=== PATIENT | female | born 1960 | race Caucasian/White ===

== ENCOUNTER 2016-10-02 11:21 | Outpatient (CLI) | payer BC | END 2016-10-02 11:22 | disposition home or self-care (01) | LOC: MADLAB 11:21 | PROVIDERS: ATTEND Family Medicine | DX: D50.9 Iron deficiency anemia, unspecified (principal) | CPT/HCPCS: 36415; 82728; 83550 ==

== ENCOUNTER 2016-12-03 09:07 | Outpatient (CLI) | payer BC ==
[2016-12-03 09:33] LABS: #Basophils 0.1 thou/uL (0.0-0.2); #Eosinphils 0.1 thou/uL (0.0-0.7); #Lymphocytes 2.2 thou/uL (1.20-3.40); #Monocytes 0.5 thou/uL (0.11-0.59); #Neutrophils 4.7 thou/uL (1.40-6.50); %Basophils 1.5 % (0.0-1.0); %Eosinophils 1.8 % (0.0-10.0); %Lymphocytes 28.8 % (21.0-51.0); %Monocytes 6.3 % (0.0-10.0); %Neutrophils 61.6 % (42.0-75.0); Hemoglobin 16.5 g/dL (12.0-16.0); Mean Corpuscular HGB CONC 32.6 g/dL (32.0-36.0); Mean Corpuscular Hemoglobin 27.7 pg (27.0-31.0); Mean Platelet Volume 6.9 fL (7.4-10.4); Platelet Count 314 thou/uL (130-400); RBC Distribution Width 14.7 % (11.5-14.5); Red Blood Cell (RBC) Count 5.95 mill/uL (4.20-5.40); White Blood Cell (WBC) Count 7.6 thou/uL (4.8-10.8)
[2016-12-03 10:05] LABS: ALT (SGPT) 20 U/L (0-55); AST (SGOT) 18 U/L (5-34); Albumin 3.9 g/dL (3.5-5.0); Alkaline Phosphatase 62 U/L (40-150); Anion Gap 16 mmol/L (10-20); BUN (Urea Nitrogen) 11 mg/dL (9.8-20.1); Bilirubin, Total 0.4 mg/dL (0.2-1.2); Calc. Creatinine Clearance 0 mL/min (70-130); Carbon Dioxide 23 mmol/L (22-29); Chloride 105 mmol/L (98-107); Estimated GFR-MDRD 86; Globulin 2.8 g/dL (2.4-3.5); Glucose 113 mg/dL (70-105); Potassium 4.1 mmol/L (3.5-5.1); Protein, Total 6.7 g/dL (6.0-8.3); Sodium 140 mmol/L (136-145)
== END 2016-12-03 09:08 | disposition home or self-care (01) ==
LOC: MADLAB 09:07
PROVIDERS: ATTEND Orthopaedic Surgery
DX: E55.9 Vitamin D deficiency, unspecified (principal); M81.0 Age-related osteoporosis without current pathological fracture
CPT/HCPCS: 36415; 80053; 82306; 85025

== ENCOUNTER 2017-02-21 09:07 | Outpatient (CLI) | payer BC ==
[2017-02-21 09:38] LABS: Hemoglobin A1c 5.5 % (4.0-6.0)
[2017-02-21 09:45] LABS: ALT (SGPT) 23 U/L (8-55); AST (SGOT) 27 U/L (5-34); Albumin 3.9 g/dL (3.5-5.0); Alkaline Phosphatase 73 U/L (40-150); Anion Gap 15 mmol/L (10-20); BUN (Urea Nitrogen) 12 mg/dL (9.8-20.1); Bilirubin, Total 0.6 mg/dL (0.2-1.2); Calc. Creatinine Clearance 0 mL/min (70-130); Calcium 10.1 mg/dL (7.8-10.44); Carbon Dioxide 25 mmol/L (22-29); Cardiac Risk 4.4 (Less than 4.5); Chloride 104 mmol/L (98-107); Cholesterol 207 mg/dl (< 200 Desired); Estimated GFR-MDRD 73; Globulin 3.7 g/dL (2.4-3.5); Glucose 120 mg/dL (70-105); HDL Cholesterol 47 mg/dL (>60 Neg Risk); LDL Cholesterol, Calculated 132 mg/dL; Potassium 4.1 mmol/L (3.5-5.1); Protein, Total 7.6 g/dL (6.0-8.3); Sodium 140 mmol/L (136-145); Triglycerides 139 mg/dL (Less than 150)
[2017-02-21 10:14] LABS: #Basophils 0.1 thou/uL (0.0-0.2); #Eosinphils 0.1 thou/uL (0.0-0.7); #Monocytes 0.6 thou/uL (0.11-0.59); #Neutrophils 5.2 thou/uL (1.40-6.50); %Basophils 1.4 % (0.0-1.0); %Eosinophils 1.6 % (0.0-10.0); %Lymphocytes 24.7 % (21.0-51.0); %Monocytes 7.1 % (0.0-10.0); %Neutrophils 65.1 % (42.0-75.0); Hemoglobin 16.6 g/dL (12.0-16.0); Mean Corpuscular HGB CONC 31.7 g/dL (32.0-36.0); Mean Corpuscular Hemoglobin 27.4 pg (27.0-31.0); Mean Corpuscular Volume 86.4 fl (81.0-99.0); Mean Platelet Volume 6.9 fL (7.4-10.4); Platelet Count 377 thou/uL (130-400); Red Blood Cell (RBC) Count 6.04 mill/uL (4.20-5.40); White Blood Cell (WBC) Count 7.9 thou/uL (4.8-10.8)
== END 2017-02-21 09:08 | disposition home or self-care (01) ==
LOC: MADLABBHPM 09:07
PROVIDERS: ATTEND Family Medicine
DX: R07.89 Other chest pain (principal); E03.9 Hypothyroidism, unspecified; R73.09 Other abnormal glucose; E55.9 Vitamin D deficiency, unspecified
CPT/HCPCS: 80053; 80061; 83036; 84443; 85025

== ENCOUNTER 2017-08-13 14:52 | Outpatient (CLI) | payer BC ==
--- NOTE | 2017-08-13 15:46 | RAD ---
TWO VIEW CHEST: Indication: Cough. FINDINGS: There is no consolidation, effusion, or pneumothorax. Cardiac silhouette is at upper limits of normal in size. There is ectasia and tortuousity of the thoracic aorta. Mild thoracic kyphosis is present. IMPRESSION: No focal consolidation. POS: [facility]
== END 2017-08-13 14:53 | disposition home or self-care (01) ==
LOC: MADRAD 14:52
PROVIDERS: ATTEND Family Medicine
DX: R05 Cough (principal)
CPT/HCPCS: 71046

== ENCOUNTER 2019-05-19 18:56 | Emergency (ER) | payer BC ==
[2019-05-19] MEDS ORDERED: Ketorolac Tromethamine 30 MG/ML VIAL ONE (19:12)
[2019-05-19 19:30] LABS: Bilirubin Negative (Negative); Blood, Urine Trace (Negative); Clarity Clear (Clear); Glucose, Urine (Dipstick) Negative (Negative); Leukocyte Trace (Negative); Nitrite Negative (Negative); Protein, Urine (Dipstick) 30 mg/dL (Neg-Trace)
[2019-05-19 19:33] LABS: #Basophils 0.1 thou/uL (0.0-0.2); #Eosinphils 0.1 thou/uL (0.0-0.7); #Lymphocytes 1.9 thou/uL (1.20-3.40); #Monocytes 0.4 thou/uL (0.11-0.59); #Neutrophils 6.7 thou/uL (1.40-6.50); %Basophils 0.7 % (0.0-1.0); %Eosinophils 1.1 % (0.0-10.0); %Monocytes 4.8 % (0.0-10.0); %Neutrophils 72.4 % (42.0-75.0); Anisocytosis SLIGHT = 6-15 cells (100X) (0-5/hpf); Hemoglobin 13.8 g/dL (12.0-16.0); MDiff Complete? YES; Mean Corpuscular HGB CONC 30.9 g/dL (32.0-36.0); Mean Corpuscular Hemoglobin 24.5 pg (27.0-31.0); Mean Corpuscular Volume 79.2 fL (78.0-98.0); Mean Platelet Volume 5.9 fL (7.4-10.4); Platelet Count 396 thou/uL (130-400); Platelet Morphology Comment Appears Adequate; RBC Distribution Width 15.1 % (11.5-14.5); Red Blood Cell (RBC) Count 5.62 mill/uL (4.20-5.40); White Blood Cell (WBC) Count 9.2 thou/uL (4.8-10.8)
[2019-05-19 19:39] LABS: ALT (SGPT) 22 U/L (8-55); AST (SGOT) 17 U/L (5-34); Albumin 3.9 g/dL (3.5-5.0); Alkaline Phosphatase 83 U/L (40-110); Anion Gap 15 mmol/L (10-20); BUN (Urea Nitrogen) 14 mg/dL (9.8-20.1); Bilirubin, Total 0.2 mg/dL (0.2-1.2); Calc. Creatinine Clearance 0 mL/min (70-130); Calcium 9.8 mg/dL (7.8-10.44); Carbon Dioxide 28 mmol/L (22-29); Chloride 104 mmol/L (98-107); Estimated GFR-MDRD 61; Globulin 3.3 g/dL (2.4-3.5); Glucose 136 mg/dL (70-105); Potassium 4.2 mmol/L (3.5-5.1); Protein, Total 7.2 g/dL (6.0-8.3); Sodium 143 mmol/L (136-145)
[2019-05-19 19:39] LABS: Bacteria/HPF Rare-Few HPF (None Seen); Mucous/LPF 2+ LPF (<2+); WBC/HPF 0-3 HPF (0-3)
--- NOTE | 2019-05-19 19:39 | CT ---
CT abdomen/pelvis noncontrast CLINICAL HISTORY: Right flank pain FINDINGS: 6 mm proximal right ureteral calculus results in moderate right hydronephrosis and prominen t distention of the right renal pelvis. Moderate distention of the proximal right ureter is present with associated periureteral fat stranding. The subsequent right ureter is decompressed. Additional r ight renal calculi are present, multiple in number. There is punctate nonobstructive left nephrolithiasis. There is colonic diverticulosis. Limited evaluation of solid abdominal organs, bowel, lymph nodes, an d vasculature, on the basis of noncontrast technique. Imaged lung bases reveal no acute process. No acute osseous abnormalities. IMPRESSION: Moderately obstructing 6 mm proximal right ureteral calculus. Multiple bilateral renal calculi. Colonic diverticulosis. Evaluation otherwise limited by noncontrast technique. Transcribed Date/Time: 05/19/2019 7:42 PM
[2019-05-19 19:40] LABS: Calcium Oxalate Crystals Rare HPF (None Seen)
[2019-05-19] MEDS ORDERED: Ondansetron ODT 4 MG TAB ONE (20:50)
== END 2019-05-19 20:54 | disposition home or self-care (01) ==
LOC: MADERS 18:56
DX: N13.2 Hydronephrosis with renal and ureteral calculous obstruction (principal); E03.9 Hypothyroidism, unspecified; M79.7 Fibromyalgia; G43.909 Migraine, unspecified, not intractable, without status migrainosus; Z79.899 Other long term (current) drug therapy; Z79.51 Long term (current) use of inhaled steroids
CPT/HCPCS: 74176; 80053; 81003; 81015; 85025; 87086; 96361; 96374; J1885; Q0162

== ENCOUNTER 2019-05-28 02:22 | Emergency (ER) | payer BC ==
[2019-05-28 03:37] LABS: Acetaminophen Less than 6.0 mcg/mL (10.0-30.0); Alcohol Less than 10 mg/dL (Less than 10); Base Excess-Venous 1.6 mmol/L (-2.0 to 3.0); CO2 Tension (PvCO2) 55.1 mmHg (40.0-50.0); Chloride 101 mmol/L (98-107); Hemoglobin - Calc 15.5 g/dL (12.0-16.0); Lipase 11 U/L (8-78); Potassium 3.5 mmol/L (3.5-5.1); Salicylate Less than 8.0 mg/dL (15.0-30.0); Sodium 136 mmol/L (138-145); T. Carbon Dioxide 30.7 mmol/L (22.0-28.0); vO2 Saturation-calc 50.9 % (60.0-85.0)
[2019-05-28 03:44] LABS: #Basophils 0.2 thou/uL (0.0-0.2); #Eosinphils 0.2 thou/uL (0.0-0.7); #Lymphocytes 1.7 thou/uL (1.20-3.40); #Monocytes 0.8 thou/uL (0.11-0.59); #Neutrophils 9.2 thou/uL (1.40-6.50); %Basophils 1.6 % (0.0-1.0); %Eosinophils 1.9 % (0.0-10.0); %Lymphocytes 13.7 % (21.0-51.0); %Monocytes 6.7 % (0.0-10.0); %Neutrophils 76.1 % (42.0-75.0); Hemoglobin 12.6 g/dL (12.0-16.0); Hypochromia SLIGHT = 6-15 cells (100X) (0-5/hpf); MDiff Complete? YES; Mean Corpuscular HGB CONC 30.8 g/dL (32.0-36.0); Mean Corpuscular Hemoglobin 24.3 pg (27.0-31.0); Mean Corpuscular Volume 78.8 fL (78.0-98.0); Mean Platelet Volume 6.1 fL (7.4-10.4); Microcytosis SLIGHT = 6-15 cells (100X) (0-5/hpf); Platelet Count 322 thou/uL (130-400); Platelet Morphology Comment Appears Adequate; Poikilocytosis MODERATE=16-30 cells (100X) (0-5/hpf); RBC Distribution Width 14.7 % (11.5-14.5); Red Blood Cell (RBC) Count 5.17 mill/uL (4.20-5.40); White Blood Cell (WBC) Count 12.1 thou/uL (4.8-10.8)
[2019-05-28 03:47] LABS: ALT (SGPT) 17 U/L (8-55); AST (SGOT) 18 U/L (5-34); Albumin 3.9 g/dL (3.5-5.0); Alkaline Phosphatase 68 U/L (40-110); Anion Gap 15 mmol/L (10-20); BUN (Urea Nitrogen) 17 mg/dL (9.8-20.1); Bilirubin, Total 0.3 mg/dL (0.2-1.2); Calc. Creatinine Clearance 0 mL/min (70-130); Calcium 9.4 mg/dL (7.8-10.44); Carbon Dioxide 26 mmol/L (22-29); Chloride 100 mmol/L (98-107); Estimated GFR-MDRD 54; Globulin 2.8 g/dL (2.4-3.5); Glucose 116 mg/dL (70-105); Potassium 3.6 mmol/L (3.5-5.1); Protein, Total 6.7 g/dL (6.0-8.3); Sodium 137 mmol/L (136-145)
[2019-05-28 03:56] LABS: Bilirubin Negative (Negative); Blood, Urine Large (Negative); Clarity Slightly Cloudy (Clear); Glucose, Urine (Dipstick) Negative (Negative); Leukocyte Small (Negative); Nitrite Positive (Negative); Protein, Urine (Dipstick) 100 mg/dL (Neg-Trace); Urobilinogen 0.2 mg/dL (Less than 2)
[2019-05-28 04:02] LABS: Cocaine Metabolite Screen Not Detected (NotDetected); Phencyclidine (PCP) Not Detected (NotDetected); THC/Cannabinoid Screen Not Detected (NotDetected)
[2019-05-28 04:03] LABS: Amphetamine Not Detected (NotDetected); Barbiturates Screen Not Detected (NotDetected); Benzodiazepine Screen Detected (NotDetected); Medtox Control Line Valid? VALID (VALID); Methadone Not Detected (NotDetected); Methamphetamine Not Detected (NotDetected); Opiate Screen Detected (NotDetected); Oxycodone Screen Not Detected (NotDetected); RBC/HPF 21-50 HPF (0-3); Tricyclic Screen Not Detected (NotDetected)
[2019-05-28 04:04] LABS: Bacteria/HPF 4+ HPF (None Seen)
[2019-05-28] MEDS ORDERED: Sodium Chloride 0.9% 100 ML ONE (06:59)
[2019-05-28] MEDS ORDERED: Sodium Chloride 0.9% 1,000 ML ONE (06:59)
[2019-05-28] MEDS ORDERED: cefTRIAXone\\ROCEPHIN 1 GM VIAL ONE (06:59)
[2019-05-28] MEDS ORDERED: Ondansetron PF 4 MG/2 ML Vial ONE (07:51)
--- NOTE | 2019-05-28 08:40 | RAD ---
SINGLE VIEW CHEST: Date: 05/28/19 COMPARISON: 12/04/16. HISTORY: Dyspnea. FINDINGS: Single view of the chest shows an enlarged but stable cardiomediastinal silhouette. There is no evide nce of consolidation, mass, or pleural effusion. IMPRESSION: Stable cardiomegaly. POS: [facility]
[2019-05-28] MEDS ORDERED: Iopamidol 370 76% 150 ML VIAL FS ONE (09:24)
--- NOTE | 2019-05-28 10:31 | CT ---
PRELIMINARY REPORT/[facility]/EMERGENCY AFTER HOURS PROCEDURE: PROCEDURE INFORMATION: Exam: CT Abdomen And Pelvis Without Contrast Exam date and time: 05/28/2019 4:18 AM Clinical history: 58 years old, female; Abdominal pain; Prior surgery; Surgery date: 3-7 days postope rative; Surgery type: Stones TECHNIQUE: Imaging protocol: Computed tomography of the abdomen and pelvis without contrast. Radiation optimization: All CT scans at this facility use at least one of these dose optimization jo ann hniques: automated exposure control; mA and/or kV adjustment per patient size (includes targeted exam s where dose is matched to clinical indication); or iterative reconstruction. COMPARISON: No relevant prior studies available. FINDINGS: Tubes, catheters and devices: A balloon bladder catheter is present. Mediastinum: Small gastroesophageal sliding type hiatal hernia. Liver: Normal. No mass. Gallbladder and bile ducts: Normal. No calcified stones. No ductal dilation. Pancreas: Normal. No ductal dilation. Spleen: Normal. No splenomegaly. Adrenals: Normal. No mass. Kidneys and ureters: Right ureteral double-J stent. Punctate nonobstructing renal calculi. Stomach and bowel: Excess gas in the colon. Mild colonic diverticulosis without evidence for acute diverticulitis. Appendix: No evidence of appendicitis. Intraperitoneal space: Unremarkable. No free air. No significant fluid collection. Vasculature: Unremarkable. No abdominal aortic aneurysm. Lymph nodes: Unremarkable. No enlarged lymph nodes. Bladder: Unremarkable as visualized. Reproductive: Unremarkable as visualized. Bones/joints: Unremarkable. No acute fracture. Soft tissues: Unremarkable. IMPRESSION: 1. Right-sided double-J ureteral stent in position. Numerous nonobstructing renal calculi. 2. Excess gas in the colon. Thank you for allowing us to participate in the care of your patient. Dictated and Authenticated by: Beltran Marshall MD 05/28/2019 5:33 AM Central Time ([place] & [place]) FINAL REPORT CT ABDOMEN AND PELVIS WITHOUT CONTRAST: I agree with the preliminary report given by Gracia. POS: [facility]
--- NOTE | 2019-05-28 10:32 | CT ---
PRELIMINARY REPORT/[facility]/EMERGENCY AFTER HOURS PROCEDURE: PROCEDURE INFORMATION: Exam: CT Angiography Chest With Contrast Exam date and time: 05/28/2019 4:25 AM Clinical history: 58 years old, female; Chest pain; Type not specified; Patient HX: Post op for stone s TECHNIQUE: Imaging protocol: Computed tomographic angiography of the chest with intravenous contrast. 3D rendering: MIP reconstructed images were created and reviewed. Radiation optimization: All CT scans at this facility use at least one of these dose optimization jo ann hniques: automated exposure control; mA and/or kV adjustment per patient size (includes targeted exam s where dose is matched to clinical indication); or iterative reconstruction. Contrast material: ISOVUE 370; Contrast volume: 120 ml; Contrast route: LT ARM; COMPARISON: No relevant prior studies available. FINDINGS: Limitations: Limited by patient's body habitus. Motion artifact does moderately limit the sensitivity of this examination. Pulmonary arteries: No filling defects in the pulmonary arteries to suggest pulmonary emboli. Aorta: Unremarkable. No aortic aneurysm. No aortic dissection. Lungs: Dependent subsegmental pulmonary atelectasis. Pleural space: Unremarkable. No pneumothorax. No pleural effusion. Heart: Unremarkable. No cardiomegaly. No pericardial effusion. Mediastinum: Small gastroesophageal sliding type hiatal hernia. Liver: Enlarged low attenuating liver, evidence of hepatic steatosis. Kidneys and ureters: Lobulated kidneys. Lymph nodes: Unremarkable. No enlarged lymph nodes. Bones/joints: Unremarkable. No acute fracture. Soft tissues: Unremarkable. IMPRESSION: No filling defects in the pulmonary arteries to suggest pulmonary emboli. Thank you for allowing us to participate in the care of your patient. Dictated and Authenticated by: Beltran Marshall MD 05/28/2019 5:36 AM Central Time ([place] & [place]) FINAL REPORT CT PULMONARY ANGIOGRAM WITH IV CONTRAST AND 3D POSTPROCESSING: I agree with the preliminary report given by Gracia. POS: [facility]
== END 2019-05-28 08:16 | disposition short-term general hospital (02) ==
LOC: MADERS 02:22
DX: N39.0 Urinary tract infection, site not specified (principal); R11.2 Nausea with vomiting, unspecified; T44.3X5A Adverse effect of other parasympatholytics [anticholinergics and antimuscarinics] and spasmolytics, initial encounter; E03.9 Hypothyroidism, unspecified; M79.7 Fibromyalgia; G43.909 Migraine, unspecified, not intractable, without status migrainosus; Z79.899 Other long term (current) drug therapy
CPT/HCPCS: 36415; 71045; 71275; 74176; 80053; 80306; 80307; 81003; 81015; 82330; 82803; 83605; 83690; 83880; 84484; 85025; 87086; 93005; 96361; 96365; 96375; J0696; J2405; J3490; J7050

== ENCOUNTER 2019-07-25 15:26 | Emergency (ER) | payer BC ==
[2019-07-25] MEDS ORDERED: Dexamethasone 4 MG TAB ONE (17:27)
[2019-07-25] MEDS ORDERED: Benzonatate 100 MG CAP ONE (17:27)
[2019-07-25] MEDS ORDERED: Azithromycin 250 MG TAB ONE (17:27)
== END 2019-07-25 17:38 | disposition home or self-care (01) ==
LOC: MADERS 15:26
DX: J18.9 Pneumonia, unspecified organism (principal); R03.0 Elevated blood-pressure reading, without diagnosis of hypertension; E03.9 Hypothyroidism, unspecified; M79.7 Fibromyalgia; G43.909 Migraine, unspecified, not intractable, without status migrainosus
CPT/HCPCS: 87081; 87430; 87804; 99283; J8540

== ENCOUNTER 2020-03-01 09:54 | Outpatient (CLI) | payer BC ==
--- NOTE | 2020-03-01 10:53 | ULT ---
US Renal Bilateral STANDARD: 03/01/2020 10:00 AM CLINICAL HISTORY: Recurrent kidney stones. STUDY: Renal ultrasound COMPARISON: None. FINDINGS: Right kidney: Echogenicity: Normal. Masses/cysts: None. Hydronephrosis: None. Calcifications: None. Length: 10.1 cm Left kidney: Echogenicity: Normal. Masses/cysts: None. Hydronephrosis: None. Calcifications: None. Length: 9.9 cm The urinary bladder is empty. IMPRESSION: Unremarkable renal ultrasound
[2020-03-01 11:00] LABS: Bilirubin Negative (Negative); Blood, Urine Trace (Negative); Clarity Clear (Clear); Glucose, Urine (Dipstick) Negative (Negative); Ketone, Urine Negative (Negative); Leukocyte Small (Negative); Nitrite Positive (Negative); Protein, Urine (Dipstick) Negative (Neg-Trace); Urobilinogen 0.2 mg/dL (Less than 2); pH, Urine 5.5 (5.0-9.0)
[2020-03-01 11:01] LABS: Specific Gravity, Urine 1.018 (1.002-1.036)
[2020-03-01 11:07] LABS: Bacteria/HPF 2+ HPF (None Seen); WBC/HPF 21-50 HPF (0-3)
--- NOTE | 2020-03-01 11:14 | RAD ---
KUB: DATE: 03/01/2020 COMPARISON: 10/08/2019. HISTORY: Kidney stones. FINDINGS: Bowel content limits detailed assessment of the renal shadows. Supine imaging is provided, limiting a ssessment for free intraperitoneal air and small bowel obstruction. The bowel gas pattern appears non obstructed. No obvious calcifications overlie either renal shadow, which may be technical in nature. CT may be beneficial. IMPRESSION: Limited assessment secondary to bowel content. No large renal calculi appreciated. Small renal calcul i cannot be excluded on the basis of this examination. Please consider CT. POS: [facility]
[2020-03-01 11:15] LABS: ALT (SGPT) 14 U/L (8-55); AST (SGOT) 16 U/L (5-34); Albumin 3.9 g/dL (3.4-4.8); Alkaline Phosphatase 61 U/L (40-110); Anion Gap 14 mmol/L (10-20); BUN (Urea Nitrogen) 13 mg/dL (9.8-20.1); Bilirubin, Total 0.3 mg/dL (0.2-1.2); CRP (Inflammatory) 2.52 mg/dL (= or < 0.5); Calc. Creatinine Clearance 0 mL/min (70-130); Calcium 8.4 mg/dL (7.8-10.44); Carbon Dioxide 27 mmol/L (23-31); Chloride 104 mmol/L (98-107); Estimated GFR-MDRD 76; Globulin 2.8 g/dL (2.4-3.5); Glucose 80 mg/dL (80-115); Potassium 4.1 mmol/L (3.5-5.1); Protein, Total 6.7 g/dL (6.0-8.3); Sodium 141 mmol/L (136-145)
[2020-03-01 11:34] LABS: #Basophils 0.1 thou/uL (0.0-0.2); #Eosinphils 0.2 thou/uL (0.0-0.7); #Lymphocytes 2.4 thou/uL (1.20-3.40); #Monocytes 0.6 thou/uL (0.11-0.59); #Neutrophils 5.4 thou/uL (1.40-6.50); %Eosinophils 1.8 % (0.0-10.0); %Lymphocytes 27.4 % (21.0-51.0); %Monocytes 7.2 % (0.0-10.0); %Neutrophils 62.7 % (42.0-75.0); Anisocytosis SLIGHT = 6-15 cells (100X) (0-5/hpf); Hypochromia SLIGHT = 6-15 cells (100X) (0-5/hpf); MDiff Complete? YES; Mean Corpuscular HGB CONC 30.1 g/dL (32.0-36.0); Mean Corpuscular Hemoglobin 24.7 pg (27.0-31.0); Mean Corpuscular Volume 82.2 fL (78.0-98.0); Mean Platelet Volume 6.6 fL (7.4-10.4); Platelet Count 355 thou/uL (130-400); Platelet Morphology Comment Appears Adequate; RBC Distribution Width 14.1 % (11.5-14.5); Red Blood Cell (RBC) Count 5.67 mill/uL (4.20-5.40); White Blood Cell (WBC) Count 8.6 thou/uL (4.8-10.8)
== END 2020-03-01 09:55 | disposition home or self-care (01) ==
LOC: MADLAB 09:54
PROVIDERS: ATTEND Urology
DX: N20.0 Calculus of kidney (principal); L40.50 Arthropathic psoriasis, unspecified
CPT/HCPCS: 36415; 74018; 76770; 80053; 81001; 83970; 85025; 85652; 86140; 87077; 87086; 87186

== ENCOUNTER 2020-03-28 12:24 | Outpatient (CLI) | payer BC ==
--- NOTE | 2020-03-28 13:02 | RAD ---
XR Hip Rt 2-3 View History: Hip pain Comparison: None. Findings: No acute fracture or malalignment. Small acetabular osteophyte formation. Right obturator r ing is intact. No SI joint widening. Soft tissues relatively unremarkable. Impression: Low-grade degenerative change. No acute osseous abnormality.
[2020-03-31 06:13] LABS: QuantiFERON-TB Gold Plus Negative (Negative)
== END 2020-03-28 12:25 | disposition home or self-care (01) ==
LOC: MADRAD 12:24
PROVIDERS: ATTEND Internal Medicine Rheumatology
DX: M25.551 Pain in right hip (principal); L40.50 Arthropathic psoriasis, unspecified; E55.9 Vitamin D deficiency, unspecified; E56.9 Vitamin deficiency, unspecified; M16.11 Unilateral primary osteoarthritis, right hip
CPT/HCPCS: 82180; 82306; 86480

== ENCOUNTER 2021-06-20 12:39 | Outpatient (CLI) | payer BC | END 2021-06-20 12:40 | disposition home or self-care (01) | LOC: MADRAD 12:39 | PROVIDERS: ATTEND Family Medicine | DX: M54.9 Dorsalgia, unspecified (principal); M47.816 Spondylosis without myelopathy or radiculopathy, lumbar region | CPT/HCPCS: 72100 ==

== ENCOUNTER 2022-09-12 11:37 | Outpatient (CLI) | payer BC | END 2022-09-12 11:38 | disposition home or self-care (01) | LOC: MADRAD 11:37 | PROVIDERS: ATTEND Internal Medicine | DX: J01.90 Acute sinusitis, unspecified (principal); J45.40 Moderate persistent asthma, uncomplicated | CPT/HCPCS: 70220; 71046 ==

== ENCOUNTER 2024-03-25 15:02 | Emergency (ER) | payer MEDICARE, BC ==
[2024-03-25 15:22] LABS: Bilirubin Negative (Negative); Blood, Urine Trace (Negative); Clarity Clear (Clear); Glucose, Urine (Dipstick) Negative (Negative); Ketone, Urine Negative (Negative); Leukocyte Moderate (Negative); Nitrite Negative (Negative); Protein, Urine (Dipstick) Negative (Neg-Trace); Specific Gravity, Urine 1.015 (1.005-1.030); Urobilinogen 0.2 mg/dL (Less than 2)
[2024-03-25 15:31] LABS: CAUTI Indications for Culture Pelvic or flank pain; RBC/HPF 0-3 HPF (0-3); Squamous Epithelial 0-3 HPF (0-3); Transitional Epithelial 0-3 HPF (None Seen); WBC/HPF 21-50 HPF (0-3)
[2024-03-25 15:32] LABS: Bacteria/HPF 1+ HPF (None Seen); Urine Culture Reflex Yes Yes
[2024-03-25] MEDS ORDERED: Lidocaine 4% Patch ONE (15:49)
[2024-03-25] MEDS ORDERED: Dexamethasone 10 MG/ML VIAL ONE (15:49)
== END 2024-03-25 16:07 | disposition home or self-care (01) ==
LOC: MADERS 15:02
DX: S33.5XXA Sprain of ligaments of lumbar spine, initial encounter (principal); R82.71 Bacteriuria; E03.9 Hypothyroidism, unspecified; X50.0XXA Overexertion from strenuous movement or load, initial encounter
CPT/HCPCS: 81001; 87077; 87086; 87186; 96372; 99283; J1100